=== PATIENT | male | born 1970 | race Caucasian/White ===

== ENCOUNTER → 2016-04-04 | Outpatient (CLI) | payer BC ==
[~2016-04-04] MED LIST: FEXOFENADINE H180 M1 PO; HYDROCHLOROTHIA25 MG PO; NASONEX17 GM NS; PRAVASTATIN SOD40 MG PO; SINGULAIR10 MG PO
== END | disposition home or self-care (01) ==
LOC: RES 12:37
DX: J45.909 Unspecified asthma, uncomplicated (principal)
CPT/HCPCS: 94060; 94726; 94729